=== PATIENT | male | born 1995 | race Caucasian/White ===

== ENCOUNTER 2016-11-17 03:48 | Emergency (ER) | payer SELFPAY ==
[~2016-11-17] VITALS: Ht 167.6 cm; Wt 76.0 kg
[2016-11-17 03:55] VITALS: Ht 167.6 cm; Wt 76.0 kg
[2016-11-17] MEDS ORDERED: ALBUTEROL 0.083% (NEB) 2.5 MG/3 ML AMP NEB STA (04:13)
[2016-11-17] MEDS ORDERED: IPRATROPIUM (NEB) 0.5 MG/2.5 ML AMP NEB STA (04:13)
--- NOTE | 2016-11-17 04:30 | RADRPT ---
PROCEDURE: Chest. CLINICAL INDICATION: Chest pain. TECHNIQUE: Single frontal view of the chest was obtained. COMPARISON: None. FINDINGS: The cardiac silhouette is within normal limits. The aortic arch is unremarkable. There is no focal consolidation, vascular congestion or pleural effusion. There is no pneumothorax. IMPRESSION: No evidence for active cardiopulmonary disease. .Jagdish Munoz MD, MD Date Time Electronically viewed and signed by .Jagdish Munoz MD, on 11/17/2016 04:29 .T/
--- NOTE | 2016-11-17 04:33 | ERD ---
ER Documentation Chief Complaint Date/Time DATE: 11/17/16 TIME: 04:23 Chief Complaint cough/sob since last night HPI 20-year-old male presents here in emergency department for complaints of cough and wheezing that started last night. Patient has been having dry cough, does not cough up any phlegm or blood. Patient does not have any sick contacts. Patient does not have any fever or chills. Patient did not take any medications to help with symptoms. ROS All systems reviewed and are negative except as per history of present illness. 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 CHEST: Diffuse wheezing bilaterally. There are no rales, crackles or rhonchi. HEART: Regular rate and rhythm. No murmurs, clicks, rubs or gallops. No S3 or S4. ABDOMEN: Soft, nontender and nondistended. Good bowel sounds. No rebound or guarding. No gross peritonitis. No gross organomegaly or masses. No Benjamin sign or McBurney point tenderness. BACK: No midline or flank tenderness. EXTREMITIES: Equal pulses bilaterally. There is no peripheral clubbing, cyanosis or edema. No focal swelling or erythema. Full range of motion. Grossly neurovascularly intact. NEURO: Alert and oriented. Cranial nerves 2-12 intact. Motor strength in all 4 extremities with 5/5 strength. Sensation grossly intact. Normal speech and gait. SKIN: There is no apparent rash or petechia. The skin is warm and dry. HEMATOLOGIC AND LYMPHATIC: There is no evidence of excessive bruising or lymphedema. No gross cervical, axillary, or inguinal lymphadenopathy. Results 24 hrs Current Medications Medications (Trade) Dose Ordered Sig/Kirti Route PRN Reason Start Time Stop Time Status Last Admin Dose Admin Albuterol (Proventil 0.083% (Neb)) 5 mg ONCE STAT NEB 11/17/16 04:13 11/17/16 04:14 DC 11/17/16 04:27 Ipratropium [place] (Atrovent 0.02% (Neb)) 0.5 mg ONCE STAT NEB 11/17/16 04:13 11/17/16 04:14 DC 11/17/16 04:27 Breathing treatment of albuterol and Atrovent was given here in emergency department, after treatment, patient's lungs sounds are clear and patient's oxygenation is better. Patient verbalized feeling much better. PROCEDURE: Chest. CLINICAL INDICATION: Chest pain. TECHNIQUE: Single frontal view of the chest was obtained. COMPARISON: None. FINDINGS: The cardiac silhouette is within normal limits. The aortic arch is unremarkable. There is no focal consolidation, vascular congestion or pleural effusion. There is no pneumothorax. IMPRESSION: No evidence for active cardiopulmonary disease. .Jagdish Munoz MD, Date Time Electronically viewed and signed by .Jagdish Munoz MD, MD on 11/17/2016 04:29 .T/ CC: MALIHA YAÑEZ [employer] PRO[employer] MANAGER Procedures/MDM Medical Decision Making: Patient symptoms are most likely consistent with acute bronchitis, which viral in origin. There is low suspicion for Pneumonia at this time since patients lungs sounds are clear, patient O2 saturation is normal and patient doesnt show any respiratory distress. Patients chest xray doesnt show infiltrates or any other cardiopulmonary emergencies at this time. There is low suspicion for other cardiopulmonary emergencies at this time such as CHF, Pulmonary Embolism, Pneumothorax,or any other cardiopulmonary emergencies at this time. There is low suspicion for sepsis. Patient appears well and is hemodynamically stable. Fever is controlled with medicines. Disposition: Home. Condition: Stable Prescriptions: albuterol, guaifenesin DM Zyrtec ibuprofen Instructions: Patient is advised to take medications as prescribed. Patient is advised to rest. Patient advised to increase fluid intake, do humidifier at home and if possible, do salt water gargles. Patient is advised that if symptoms are worse, shortness of breath, uncontrolled fever, stridor, vomiting, worst signs and symptoms to return to emergency department immediately. Otherwise, patient is advised to follow up with primary doctor in 5-7 days. Departure Diagnosis: Primary Impression: Acute bronchitis Bronchitis organism: unspecified organism Qualified Code: J20.9 - Acute bronchitis, unspecified organism Condition: Stable Patient Instructions: Bronchitis With Wheezing (Adult) Additional Instructions: Patient is advised to take medications as prescribed. Patient is advised to rest. Patient advised to increase fluid intake, do humidifier at home and if possible, do salt water gargles. Patient is advised that if symptoms are worse, shortness of breath, uncontrolled fever, stridor, vomiting, worst signs and symptoms to return to emergency department immediately. Otherwise, patient is advised to follow up with primary doctor in 5-7 days. MALIHA YAÑEZ NP Nov 17, 2016 04:33
[2016-11-17] MEDS ORDERED: GUAI120S26 PO (05:15)
[2016-11-17] MEDS ORDERED: CETI10CA PO (05:15)
[2016-11-17] MEDS ORDERED: IBUP400T22 PO (05:15)
[2016-11-17] MEDS ORDERED: ALBU8.5H3 INH (05:15)
== END 2016-11-17 05:39 | disposition home or self-care (01) ==
LOC: FTE 03:48
DX: J20.9 Acute bronchitis, unspecified (principal)
CPT/HCPCS: 71010; 94664